=== PATIENT | male | born 1940 | race Caucasian/White ===

== ENCOUNTER 2022-10-01 08:17 | Observation (INO) ==
--- NOTE | 2022-08-23 11:11 | PAT Medication Instructions ---
Medication Instructions Date of Service August 23, 2022 Home Medications Medications aspirin 81 mg tablet,delayed release (Adult Low Dose Aspirin) 81 mg PO QAM 05/09/20 [History Confirmed 08/23/22] multivitamin (Daily Multi-Vitamin tablet) 1 tab PO QAM 05/09/20 [History Confirmed 08/23/22] omega-3 fatty acids 1,000 mg capsule (Fish Oil Concentrate) 1,000 mg PO QAM 05/09/20 [History Confirmed 08/23/22] Vitamin B-12 1 tab PO QAM 08/23/22 [History Confirmed 08/23/22] Zn-pyg opnd-nftglf-onk palmet capsule 1 cap PO QAM 08/23/22 [History Confirmed 08/23/22] meloxicam 15 mg tablet 15 mg PO QPM 08/23/22 [History Confirmed 08/23/22] rosuvastatin 10 mg tablet (Crestor) 10 mg PO Q2D 08/23/22 [History Confirmed 08/23/22] tamsulosin 0.4 mg capsule 0.4 mg PO QPM 08/23/22 [History Confirmed 08/23/22] Take morning of surgery With a small sip of water, OTHERWISE NOTHING TO EAT OR DRINK AFTER MIDNIGHT: Insulin Dependent Diabetic Patients * Test your blood sugar the morning of surgery * If Blood Sugar is GREATER THAN 150, take HALF of your regular dose of: * If Blood Sugar is LESS THAN 150, DO NOT TAKE ANY: Other Notes If you have any questions please call us at [phone] or [phone] or [phone] or [phone]
--- NOTE | 2022-08-23 11:22 | PAT Medication Instructions ---
Medication Instructions Date of Service August 23, 2022 Home Medications aspirin 81 mg tablet,delayed release (Adult Low Dose Aspirin) 81 mg PO QAM multivitamin (Daily Multi-Vitamin tablet) 1 tab PO QAM omega-3 fatty acids 1,000 mg capsule (Fish Oil Concentrate) 1,000 mg PO QAM Vitamin B-12 1 tab PO QAM Zn-pyg lxyk-gyuyit-sqw palmet capsule 1 cap PO QAM meloxicam 15 mg tablet 15 mg PO QPM rosuvastatin 10 mg tablet (Crestor) 10 mg PO Q2D tamsulosin 0.4 mg capsule 0.4 mg PO QPM Continue as directed rosuvastatin 10 mg tablet (Crestor) 10 mg PO Q2D ASK your surgeon for instructions meloxicam 15 mg tablet 15 mg PO QPM STOP taking 2 weeks before surgery omega-3 fatty acids 1,000 mg capsule (Fish Oil Concentrate) 1,000 mg PO QAM Zn-pyg xtvf-stuzqr-nfr palmet capsule 1 cap PO QAM DO NOT take the morning of surgery multivitamin (Daily Multi-Vitamin tablet) 1 tab PO QAM Vitamin B-12 1 tab PO QAM Take morning of surgery With a small sip of water, OTHERWISE NOTHING TO EAT OR DRINK AFTER MIDNIGHT: aspirin 81 mg tablet,delayed release (Adult Low Dose Aspirin) 81 mg PO QAM (unless surgeon directed otherwise) Take evening before surgery tamsulosin 0.4 mg capsule 0.4 mg PO QPM Other Notes If you have any questions please call us at [phone] or [phone] or [phone] or [phone]
--- NOTE | 2022-08-25 10:01 | Anesthesiology Consultation ---
Date of Service August 25, 2022 Assessment & Plan (1) Encounter for pre-operative examination: Chart Review Chart Review: Acceptable Risk for Surgery (pending cardio clearance 09/01/22) and Patient seen in Pre Admission Testing - Pt referred to cardio for new onset bifascicular block - appt for 09/01/22 at 1030am (pt's informed and confirms) Pt is NOT an OPJ candidate due to age Per PAT appt on 08/25/22, patient denies any recent travel or large group activities. Pt is vaccinated for Covid. Will leave to surgeon's discretion if preop Covid testing needed. Educated on importance of using Covid precautions one week prior to surgery Teaching & Discussion Pre-Anesthesia Teaching/Discussion Notes: Instructed NPO after midnight before surgery,except medications with 15 cc of water. Medication instructions provided according to the [facility] guidelines. History Surgery Operation Date: 10/01/22 08:10 Proposed Procedures p Left Total Hip Arthroplasty Anterior - Jose Antonio Valdez, Height/Weight Height: 5 ft 6 in Weight: 76.2 kg Allergies Allergy/AdvReac Type Severity Reaction Status Date / Time No Known Allergies Allergy Unknown NONE KNOWN Verified 08/23/22 09:05 Medications Home Medications Medication Instructions Recorded Confirmed Last Taken aspirin 81 mg tablet,delayed 81 mg PO QAM 05/09/20 08/23/22 Unknown release (Adult Low Dose Aspirin) multivitamin (Daily Multi-Vitamin 1 tab PO QAM 05/09/20 08/23/22 Unknown tablet) omega-3 fatty acids 1,000 mg 1,000 mg PO QAM 05/09/20 08/23/22 Unknown capsule (Fish Oil Concentrate) Vitamin B-12 1 tab PO QAM 08/23/22 08/23/22 Unknown Zn-pyg gdqi-cukran-qyi palmet 1 cap PO QAM 08/23/22 08/23/22 Unknown capsule meloxicam 15 mg tablet 15 mg PO QPM 08/23/22 08/23/22 Unknown rosuvastatin 10 mg tablet (Crestor) 10 mg PO Q2D 08/23/22 08/23/22 Unknown tamsulosin 0.4 mg capsule 0.4 mg PO QPM 08/23/22 08/23/22 Unknown Past Medical History Medical History BPH associated with nocturia Dyslipidemia History of anesthesia reaction "comes out of it pretty wild" Exercise / Class Metabolic Activity II 4-5 Yardwork/Stairs/Walk up hill (one flight of stairs - no chest pain or SOB - no ambulation device needed ) Past Family History Family History Father Myocardial infarction Denies family history of Ovarian cancer Prostate cancer Breast cancer Colorectal cancer Past Surgical History Surgical History Hx of basal cell carcinoma excision 2-3x Hx of colonoscopy Hx of thumb surgery S/P appendectomy Past Anesthesia History No Hx of Anesthesia Complications (with exception mildly combative post op ("wild" per patient)) History of PONV No Hx of PONV and No Hx of Motion Sickness Social History Smoking Status: Former smoker tobacco type: smokeless tobacco Do You Dip or Chew Tobacco: Yes (1 pouch/week; advised) Smoking End Date: years ago-for short time Hx Alcohol Use: Yes Alcohol type: beer alcohol intake frequency: other Alcohol Intake Frequency Comment: 1 case last about 45 days Hx Substance Use: No substance use type: does not use Review of Systems Patient denies chest pain, shortness of breath, dyspnea on exertion, reflux, cough, wheezing, palpitations. No hx of seizures, stroke, HI, apnea/snoring. No hx of blood clots or blood transfusions Physical Exam Vital Signs VITALS BP 160/86 (manually on recheck- initially 180/84) P 62 TEMP 97.8 SP02 96% RESP 16 Constitutional no acute distress ENMT Mouth: + poor dentition; no TMJ clicking Thyromental Distance: > or= 3.5 Finger Breadths (3.5) Mallampati Class: III Most teeth broken/decayed Neck + limited neck extension Respiratory normal respiratory effort; no respiratory distress Auscultation: lungs clear to auscultation bilaterally; no wheezes Cardiovascular Rate/Rhythm: regular rate and regular rhythm Heart Sounds: no murmur Vessels: no carotid bruit Musculoskeletal Spine: no pain with cervical ROM Extremities: extremities normal to inspection Psychiatric Orientation: alert Lab Results Anesthesia Preop Results Results Anesthesia Widget: WBC 5.89 K/ul (4.8-10.8) 08/25/22 Hgb 12.8 g/dl (14.0-18.0) L 08/25/22 Hct 38.5 % (42.0-52.0) L 08/25/22 Plt 195 K/uL (130-400) 08/25/22 Na 140 mmol/L (136-145) 08/25/22 K 4.5 mmol/L (3.5-5.1) 08/25/22 Cl 107 mmol/L (98-107) 08/25/22 CO2 28 mmol/L (21-32) 08/25/22 BUN 23 mg/dl (6-23) 08/25/22 Creat 0.88 mg/dl (0.6-1.4) 08/25/22 Glucose Level 101 mg/dl (70-99(Fasting)) H 08/25/22 PT 10.6 Seconds (9.0-12.0) 08/25/22 PTT 24.3 Seconds (21.0-31.0) 08/25/22 INR 1.0 (0.9-1.1) 08/25/22 Blood Type O Positive 08/25/22 Antibody Screen NEGATIVE 08/25/22 Testing Electrocardiogram Date: 08/25/22 SB with sinus arrhythmia at 55bpm RBBB. LAFB Bifascicular block When compared to EKG from Jan 17, 2009- RBBB and LAFB now present per cardio Chest X-Ray Date: 08/25/22 FINDINGS: PA and lateral chest radiographs are compared to chest x-ray and chest CT dated 01/17/2009. The cardiomediastinal heart is mildly enlarged noting atherosclerotic calcification of the thoracic aorta. The pulmonary vasculature is noncongested. Chronic interstitial thickening is similar to previous. The lungs and pleural spaces are clear. There is no pneumothorax. The skeletal structures are osteopenic. There are chronic/healed left-sided rib fractures. Degenerative change is noted in the shoulders and spine. IMPRESSION: Cardiomegaly with no active disease in the chest. COVID-19 Risk Screen Screening Information COVID-19 Screen Date: 08/25/22 Exposure 21 Days Family/Household +COVID Last 21 Days: No Exposure 10 Days Any COVID Exposure Last 10 Days: No Symptoms Last 10 Days Experienced COVID Sx Last 10 Days: No + COVID 0-90 Days COVID + in Last 0-90 Days: No Risk Plan COVID Risk Plan: No Risk Identified Patient Education COVID Preop Screening Education Complete: Yes
--- NOTE | 2022-09-30 14:22 | History & Physical Report ---
Date of Service September 30, 2022 Assessment & Plan (1) Hip arthritis: We will proceed with a left anterior total of arthroplasty. Postoperatively he will be started on aspirin for DVT prophylaxis and kept overnight in the hospital for postop medical management. He plans to use energy physical therapy upon discharge. History of Present Illness Chief Complaint: Osteoarthritis of the left hip. 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 He has been dealing with chronic increasing left hip pain. X-rays and clinical examination been diagnostic for advanced arthritis of the left hip. He saw my partner, Dr. Bangura, who tried several injections. The intraarticular hip injection seemed to help the most. He is really struggling with his hip. 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 After failing conservative treatment, he has elected proceed with a left total hip arthroplasty. Allergies Allergy/AdvReac Type Severity Reaction Status Date / Time No Known Allergies Allergy Unknown NONE KNOWN Verified 09/01/22 10:13 Home Medications Medication Instructions Recorded Confirmed Type aspirin 81 mg tablet,delayed 81 mg PO QAM 05/09/20 09/01/22 History release (Adult Low Dose Aspirin) multivitamin (Daily Multi-Vitamin 1 tab PO QAM 05/09/20 09/01/22 History tablet) omega-3 fatty acids 1,000 mg 1,000 mg PO QAM 05/09/20 09/01/22 History capsule (Fish Oil Concentrate) Vitamin B-12 1 tab PO QAM 08/23/22 09/01/22 History Zn-pyg hvms-yxshie-nrp palmet 1 cap PO QAM 08/23/22 09/01/22 History capsule meloxicam 15 mg tablet 15 mg PO QPM 08/23/22 09/01/22 History rosuvastatin 10 mg tablet (Crestor) 10 mg PO Q2D 08/23/22 09/01/22 History tamsulosin 0.4 mg capsule 0.4 mg PO QPM 08/23/22 09/01/22 History Past Med/Surg History Medical History BPH associated with nocturia Dyslipidemia History of anesthesia reaction "comes out of it pretty wild" Surgical History Hx of basal cell carcinoma excision 2-3x Hx of colonoscopy Hx of thumb surgery S/P appendectomy Family History Father Myocardial infarction Denies family history of Ovarian cancer Prostate cancer Breast cancer Colorectal cancer Social History Smoking Status: Former smoker Tobacco Type: Smokeless Tobacco (Dip or Chew) Smoking End Date: years ago-for short time; Second Hand Exposure: No; Do You Dip or Chew Tobacco: Yes (1 pouch/week; advised); Tobacco Cessation Education Requested by Patient: No Hx Alcohol Use: Yes Alcohol type: beer Alcohol Intake Frequency: 2-3 x/Week Alcohol Intake Frequency Comment: 2-3 beers per week Hx Substance Use: No Preferred Language: Mohawk Communication Ability: Effective Visual Impairment: No Limitations Hearing Ability: Normal Circuit Board Assembler Required: No Beliefs That Will Affect Care: None marital status: Current Living Situation: Spouse current occupational status: retired current occupation: retired as a gee, still does work with farming Other Information That Helps Us Care for You: No Feels Safe at Home: Yes Safety Concerns: Feels Safe At This Time Childhood Exposure to Second-Hand Smoke: No Diet: regular Dental Care, Regularly: No Physical Activity Frequency: Daily Seatbelt Use: never Sunscreen Use: No Assistive Devices: Glasses Review of Systems All systems reviewed & are unremarkable except as noted in HPI & below. Physical Exam On physical examination of left hip, he has decreased range of motion and pain with forced internal and external rotation.. Constitutional WD/WN, vitals as above Eyes PERRL, conjunctivae normal, anicteric sclerae ENMT external ear and nose normal, oropharynx normal Neck trachea midline, no thyromegaly Respiratory normal respiratory effort, lungs clear to auscultation Cardiovascular RRR, no murmur, no edema Gastrointestinal (Abdomen) normal bowel sounds, soft, nontender, no hepatosplenomegaly Skin no rashes, warm and dry Psychiatric A+Ox3, euthymic affect Results & Data Results & Data Laboratory Results . Diagnostic Findings X-rays of the left hip show advanced osteoarthritis with joint space narrowing, osteophyte formation, and jzgd-oz-solk articulation. PG Care Time/CCT Total # of Minutes Spent Total Time Spent with Patient: Total time spent is greater than 50% in coordination of care (as documented) at patient's floor/unit and/or counseling patient: Coding Level of Care Code None Diagnoses Hip arthritis M16.10
[~2022-10-01 08:17] MED LIST: ACETAMINOPHEN 500 MG TAB PO SCH; FAMOTIDINE 20 MG TAB PO SCH; GABAPENTIN 300 MG CAP PO SCH; LR 500ML BOLUS, THEN 15ML/HR IV SCH; LR 60ML/HR IV SCH; ORTHO JOINT MIX INFIL SCH; ROPIVACAINE 0.5% 5 MG/ML 30 ML VIAL ONE; TRANEXAMIC ACID 1,000 MG **IV Intra-op IV SCH; TRANEXAMIC ACID 1,000 MG **IV Pre-op IV SCH; ceFAZolin 2000MG 2,000 MG/15 ML SYR IV SCH; dexAMETHasone 4 MG TAB PO SCH
--- NOTE | 2022-10-01 10:04 | History & Physical Bridge Note ---
Date of Service October 01, 2022 History & Physical Bridge Note I have examined the patient, reviewed the History & Physical and in the interval since the performance of the History & Physical I have noted the following changes of clinical significance: no changes noted
[2022-10-01] MEDS ORDERED: ATROPINE SULFATE 0.1 MG/ML 10ML SYR IV PRN (10:40)
[2022-10-01] MEDS ORDERED: KETOROLAC 30 MG/ML VIAL IV PRN (10:40)
[2022-10-01] MEDS ORDERED: ONDANSETRON INJ 2 MG/ML 2 ML VIAL IV PRN ×2 (10:40→14:17)
[2022-10-01] MEDS ORDERED: fentaNYL citrate PF 100 MCG/2 ML VIAL IV PRN (10:40)
[2022-10-01] MEDS ORDERED: ePHEDrine sulfate 50 MG/ML AMP IV PRN (10:40)
[2022-10-01] MEDS ORDERED: ORTHO JOINT ANESTHETIC ONE (10:52)
[2022-10-01] MEDS ORDERED: fentaNYL citrate PF 100 MCG/2 ML VIAL ONE (10:58)
[2022-10-01] MEDS ORDERED: MIDAZOLAM HCL 1 MG/ML 2ML VIAL ONE (10:58)
[2022-10-01] MEDS ORDERED: PROPOFOL IV EMULSION 10 MG/ML 20 ML VIAL IV ONE (11:02)
[2022-10-01] MEDS ORDERED: KETAMINE 50 MG/5 ML SYRINGE ONE (11:37)
--- NOTE | 2022-10-01 12:29 | Operative Report ---
PG Post Operative Report Pre & Post Diagnosis Operation Date: 10/01/22 11:00 Pre-Op Diagnosis: Left Hip Arthritis Post-Op Diagnosis: Left Hip Arthritis I identified the patient and participated in the time-out.: Yes Procedure Operation Date: 10/01/22 11:00 Actual Procedures p Left Total Hip Arthroplasty Anterior(Left) - Jose Antonio Valdez DO Surgeon Jose Antonio Valdez DO Recyclable Products Sorter Jose Antonio Carr PA-C Estimated Blood Loss 200 Findings Consistent with Post-Op Diagnosis Specimens Left femoral head Description of Procedure Implants used I used a ZimmerBiomet total hip arthroplasty system with a size 5 high offset Avenir Complete stem, a 54 mm G7 cup with a 25mm screw, an E1 polyethylene liner, a 40 mm ceramic head with a 0 neck. Schuyler arrived at the hospital for the above procedure. He was seen in the preoperative holding area and the operative extremity was identified and signed. He was given a spinal anesthetic, a preoperative antibiotic, and TXA. He was then taken back to the operating room and laid on the table in the supine position. He was given basic sedation. The operative leg was secured to a Puristst leg positioner. The hip was then prepped and draped in sterile fashion. A timeout was done and the patient and the operative extremity was properly identified. An anterior approach was used. Dissection was taken down through the fascia and the tensor muscle belly was retracted laterally and the rectus was retracted medially. The circumflex vessels were identified and ligated. The capsule was then incised and tagged for later repair. The femoral neck was then cut and the femoral head was removed. The acetabulum was exposed. Time was spent doing a complete circumferential labral release. Sequential reaming of the acetabulum up to a size 53 reamer was done. Final reamings were done under fluoroscopy to ensure appropriate version. A Biomet 54 mm G7 cup was then impacted into place. A single 25 mm screw was placed. The E1 polyethylene liner was then snapped into place. Surrounding soft tissues were then injected with 100 cc of an orthopedic pain control cocktail. The proximal femur was then exposed. Sequential broaching up to a size 5 broach was done. Off that broach a size 40 head with a 0 neck was trialed. The hip was reduced and fluoroscopic images showed anatomic alignment of the implants in acceptable length. The broach was removed. The final size 5 high offset Avenir Complete stem was then impacted into place. A ceramic 40 mm head with a 0 neck was then impacted onto the stem and the hip was reduced. Final fluoroscopic images showed anatomic alignment of the hip. The capsule was then closed with #1 Vicryl suture. A dilute betadyne lavage was then done for 3 minutes. The joint was then irrigated with normal saline solution. The fascia was closed with #1 PDS suture. Skin was closed with 2-0 Vicryl, jason, and a Silverlon dressing. He was then transferred to a hospital bed and taken to the post anesthesia care unit in stable condition. He tolerated the procedure well. Jose Antonio Carr PA-C, was present for the entire procedure. He was critical for patient positioning, prepping, draping, retraction exposure, wound closure and application of sterile dressing. I attest to the content of the Intraoperative Record and any orders documented therein. Any exceptions are noted below.
--- NOTE | 2022-10-01 13:59 | Fluoroscopy Report ---
FL hip LT 1V CLINICAL HISTORY: LT ANTERIORleft hip arthroplasty COMPARISON STUDY: 03/19/2022 FLUOROSCOPY TIME: 14.5 seconds FLUOROSCOPY IMAGES: 1 EXPOSURE DOSE: 1.65 mGy FINDINGS: Left hip arthroplasty demonstrates satisfactory alignment. No acute fracture or unexpected opaque foreign body. Expected postoperative soft tissue swelling with deep tissue air. IMPRESSION: Fluoroscopic assistance as above. ACT 112: Negative or not required by law. Electronically signed by: Hammad Miguel M.D. 10/01/2022 1:57 PM
--- NOTE | 2022-10-01 14:01 | Anesthesiology Progress Note ---
Date of Service October 01, 2022 Anesthesia Post Procedure Vital Signs Vital Signs: Temp Pulse Resp BP Pulse Ox O2 Del Method O2 Flow Rate 10/01/22 13:45 36.4 C L 56 L 14 120/76 97 Nasal Cannula 2 10/01/22 13:35 55 L 16 138/68 98 Nasal Cannula 2 10/01/22 13:25 56 L 12 127/64 97 Nasal Cannula 2 10/01/22 13:15 58 L 14 111/63 96 Nasal Cannula 2 10/01/22 13:05 56 L 14 133/63 97 Nasal Cannula 2 10/01/22 12:55 56 L 18 132/68 98 Oxymask 4 10/01/22 12:44 36.4 C L 54 L 12 103/68 97 Oxymask 6 10/01/22 08:45 36.6 C 61 20 187/91 H 97 Room Air Pain Intensity Left Hip: Pain Intensity: 8 Transfer of Care Handoff Completed per policy Notes Mental Status: alert / awake / arousable Patient Amnestic to Procedure: Yes Nausea / Vomiting: adequately controlled Pain: adequately controlled Airway Patency, RR, SpO2: stable & adequate BP & HR: stable & adequate Hydration State: stable & adequate Anesthetic Complications: no major complications apparent
[2022-10-01] MEDS ORDERED: NALOXONE HCL 0.4 MG/1 ML VIAL/CARP IV PRN (14:17)
[2022-10-01] MEDS ORDERED: bisacodyL 10 MG SUPP PR PRN (14:17)
[2022-10-01] MEDS ORDERED: ROSUVASTATIN CALCIUM 10 MG TAB PO SCH (14:17)
[2022-10-01] MEDS ORDERED: METOCLOPRAMIDE HCL INJ 5 MG/ML 2 ML VIAL IV PRN (14:17)
[2022-10-01] MEDS ORDERED: HYDROmorphone INJ 0.5 MG/0.5 ML SYR IV PRN (14:17)
[2022-10-01] MEDS ORDERED: MAGNESIUM HYDROXIDE SUSP 30 ML UDC PO PRN (14:17)
[2022-10-01] MEDS ORDERED: oxyCODONE HCL IR 5 MG TAB (IMMEDIATE RELEASE) PO PRN (14:17)
[2022-10-01] MEDS: SODIUM CHLORIDE 0.9% 1000ML 1,000 ML IV SCH (14:37)
--- NOTE | 2022-10-01 14:41 | XRay Report ---
XR hip 1V LT w pelvis CLINICAL HISTORY: IN PACU - Post Surgical TECHNIQUE: 2 views of the left hip and single frontal view of the pelvis were obtained. Comparison: Comparison is made to left hip radiograph 03/19/2022 FINDINGS: Patient is status post total hip arthroplasty with expected postsurgical changes including soft tissu e swelling and subcutaneous emphysema. IMPRESSION: Expected postoperative appearance status post placement of total hip arthroplasty. ACT 112: Negative or not required by law. Electronically signed by: Jimenez Michaud M.D. 10/01/2022 2:39 PM
[2022-10-01] MEDS: ACETAMINOPHEN 500 MG TAB PO SCH ×2 (14:54→21:23)
[2022-10-01] MEDS: KETOROLAC TROMETHAMINE 15 MG/ML VIAL IV SCH ×2 (14:55→21:24)
[2022-10-01] MEDS: ceFAZolin 2000MG 2,000 MG/15 ML SYR IV SCH (18:29)
[2022-10-01] MEDS ORDERED: TAMSULOSIN HCL 0.4 MG CAP PO SCH (21:00)
[2022-10-01] MEDS ORDERED: SENNA 8.6 MG TAB PO SCH (21:00)
[2022-10-01] MEDS: DOCUSATE SODIUM 100 MG CAP PO SCH (21:22)
[2022-10-01] MEDS: ASPIRIN 81 MG ECTAB PO SCH (21:22)
[2022-10-02] MEDS: SODIUM CHLORIDE 0.9% 1000ML 1,000 ML IV SCH (00:10)
[2022-10-02] MEDS: KETOROLAC TROMETHAMINE 15 MG/ML VIAL IV SCH ×2 (02:04→08:42)
[2022-10-02] MEDS: ceFAZolin 2000MG 2,000 MG/15 ML SYR IV SCH (02:05)
[2022-10-02] MEDS: ACETAMINOPHEN 500 MG TAB PO SCH (06:38)
[2022-10-02] MEDS ORDERED: dexAMETHasone 4 MG TAB PO SCH (08:00)
[2022-10-02] MEDS: ASPIRIN 81 MG ECTAB PO SCH (08:42)
[2022-10-02] MEDS: DOCUSATE SODIUM 100 MG CAP PO SCH (08:42)
[2022-10-02] MEDS ORDERED: MULTIVITAMIN TAB PO SCH (09:00)
--- NOTE | 2022-10-02 09:05 | Orthopedic Progress Note ---
Date of Service October 02, 2022 Assessment & Plan (1) Status post left hip replacement: Overall he is doing very well. He is not having much pain in the left hip. He will be seen by physical therapy today for ambulation and range of motion exercises. He is on aspirin for DVT prophylaxis. He can be discharged home later today. He will follow-up with orthopedics in 2 weeks. Vickie Leonardo was seen and examined at bedside this morning. Overall is doing fairly well. Is not having much pain in the left hip. He has been up and ambulating around the room. He has no complaints.. Review of Systems All systems reviewed & are unremarkable except as noted in HPI & below. Physical Exam On physical examination of the left hip, the dressing is clean and dry. His leg is out full extension. He has active dorsiflexion plantarflexion of his left ankle.. Results & Data Results & Data Laboratory Results . Diagnostic Findings Postoperative x-rays of the left hip show the prosthesis to be in anatomic alig nment without any evidence of fracture complication, or loosening.. PG Care Time/CCT Total # of Minutes Spent Total Time Spent with Patient: Total time spent is greater than 50% in coordination of care (as documented) at patient's floor/unit and/or counseling patient: Coding Level of Care Code 40719 Post Operative Follow-Up Diagnoses Status post left hip replacement Z96.642
--- NOTE | 2022-10-02 09:06 | Discharge Summary ---
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 He has been dealing with chronic increasing left hip pain. X-rays and clinical examination been diagnostic for advanced arthritis of the left hip. He saw my partner, Dr. Bangura, who tried several injections. The intraarticular hip injection seemed to help the most. He is really struggling with his hip. 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 After failing conservative treatment, he has elected proceed with a left total hip arthroplasty. Admission Exam (Per Admitting) On physical examination of left hip, he has decreased range of motion and pain with forced internal and external rotation.. Principal Diagnosis Same as "Discharge Diagnosis" noted below under Discharge Instructions. Discharge Exam On physical examination of the left hip, the dressing is clean and dry. His leg is out full extension. He has active dorsiflexion plantarflexion of his left ankle.. Discharge Data Procedures Performed Operation Date: 10/01/22 11:00 Actual Procedures p Left Total Hip Arthroplasty Anterior(Left) - Jose Antonio Valdez DO Ordered Studies 10/01/22 11:00 FL hip LT 1V Routine Hospital Course (1) Status post left hip replacement: On October 01, 2022 Schuyler arrived at [facility] and underwent a left hip replaced without complication. He had a spinal anesthetic. Postoperatively he was started on aspirin for DVT prophylaxis and transferred to the general orthopedic floors. His hospital course was uneventful. On postop day #1, his vital signs were stable and his pain was well controlled. He was able to participate well with physical therapy doing ambulation and range of motion exercises. He was then discharged home. He will follow-up with orthopedics in 2 weeks. PG Care Time/CCT Total # of Minutes Spent Total Time Spent with Patient: Total time spent is greater than 50% in coordination of care (as documented) at patient's floor/unit and/or counseling patient: Discharge Plan Discharge Items Patient Disposition: Home - Home Health Services Reason For Visit: Left Hip Degenerative Joint Disease Discharge Diagnosis: Left hip replacement Activity: Per Instructions section Non-emergency contact: Surgeon Call non-emergency contact if: your wound has increased redness and your wound has increased drainage Follow-up/Referrals: Azul Roman CRNP [Primary Care Provider] - 10/11/22 10:00 am Diet: Regular Addtl Attending Provider Instructions: Activity and Therapy Recommendations: * If you are using [facility] then therapy will be provided at your home until they feel you have accomplished all of your goals. * If you are using [facility] then Physical Therapy will be provided until they feel you are ready to start Outpatient Physical Therapy. * If you are not using home therapy then Outpatient Physical Therapy should start about 3-5 days from your day of surgery. Therapy will last about 6-10 w eeks * You were shown a series of exercises in the hospital. Do these exercises three times each day including the exercises you were shown in physical therapy. * Get up and walk several times each day.~ For the first four weeks, try not to stand or walk for more than one hour at a time. If you do stand or walk for more than one hour, you will not hurt anything, but your leg will likely swell.~~ * As you feel comfortable, you may change from the walker or crutches to a cane and~then to independent walking. Medications: * Narcotic You will likely be sent home from the hospital with a prescription for the narcotic pain medication that worked best throughout your stay. * Aspirin Most patients will be required to take Aspirin 81mg twice a day for 6 weeks after surgery. This is obtained [id number] and a prescription is not necessary. * Other medications may be prescribed for specific circumstances. If you have any questions, please call the office at . * Resume previous home medications unless otherwise instructed TEDs/Elastic Stockings: The white elastic stockings help limit swelling and prevent blood clots from forming in your legs. The more you wear them, the more they work. Wear them for six weeks. Dressing Care: Leave the Silverlon dressing in place for 7 days. After 7 days you may remove the dressing. If the incision is not draining then you may leave the jason open to air. If there is a little bit of drainage or if the jason are getting stuck on your clothing then cover the incision with a dry dressing. The jason will be removed at your 2 week follow-up appointment. Showering: You may shower with the Silverlon dressing in place. Do not let the shower spray hit the dressing directly. Pat the Silverlon dressing dry. If the dressing becomes wet underneath, then simply remove the dressing. Keep the incision dry until you are 7 days out from the day of surgery. After 7 days you may remove the Silverlon dressing and shower with the jason exposed. Let soapy water run over the jason and pat them dry. Do not scrub or soak the incision. Things To Watch For: * Drainage from the incision site that occurs more than one week after your surgery. * Increased redness at the incision site. * Fever above 102 degrees Fahrenheit. * Unusual chest pain or shortness of breath. * Call [facility] at with any of the above probl ems Follow-Up Visit: Follow-up with Dr. Valdez's PA (Jose Antonio Carr) 2-3 weeks after your day of surgery. He will remove your jason and answer any questions. If you have any additional questions or concerns, Dr Valdez is usually in the office at the same time and will be available An appointment was probably scheduled when you signed-up for surgery in the office. If you have any questions call Office Instructions: More detailed instructions as well as Frequently Asked Questions were provided in a folder by our office when you signed-up for surgery. Please review these instructions when you get home. If you have any further questions or concerns, please feel free to call the office at [phone] Pending Studies at Discharge: No Stand-Alone Forms: [facility] Medications and DC Order Prescriptions: New tramadol 50 mg tablet 50 mg PO Q6H PRN (Reason: pain) Qty: 30 0RF Continued multivitamin [Daily Multi-Vitamin] Tablet 1 tab PO QAM omega-3 fatty acids [Fish Oil Concentrate] 1,000 mg capsule 1,000 mg PO QAM Saw Vonore Complex Capsule 1 cap PO QAM Vitamin B-12 1 tab PO QAM meloxicam 15 mg tablet 15 mg PO QPM Patient Comments: told to stop 7 days prior to surgery tamsulosin 0.4 mg capsule 0.4 mg PO QPM rosuvastatin [Crestor] 10 mg tablet 10 mg PO Q2D Rx Instructions: 10 mg orally every other day; Changed aspirin [Adult Low Dose Aspirin] 81 mg tablet,delayed release (DR/EC) 81 mg PO BID 42 Days Qty: 0 0RF Admission Data Admit Date/Time: 10/01/22 12:46 Attending Provider: Jose Antonio Valdez Admit Provider: Jose Antonio Valdez Primary Care Provider: Azul Roman
== END 2022-10-02 10:24 | disposition home health service (06) ==
LOC: 3E 08:17 → ASU 08:17